=== PATIENT | male | born 1965 | race Two or more races ===

== ENCOUNTER 2024-05-17 12:46 | Emergency (ER) | payer MEDICAID ==
[~2024-05-17] VITALS: Ht 170.2 cm; Wt 83.9 kg
[2024-05-17 12:52] VITALS: BP 148/87; PULSE 96; RESP 16; TEMP 98.8; O2SAT 96
[2024-05-17] MEDS ORDERED: IBUP-2213 PO (15:38)
[2024-05-17] MEDS: IBUPROFEN 600 MG TAB PO ONE (15:55)
== END 2024-05-17 15:54 | disposition home or self-care (01) ==
LOC: MED 12:46
DX: S60.111A Contusion of right thumb with damage to nail, initial encounter (principal); R03.0 Elevated blood-pressure reading, without diagnosis of hypertension; W23.0XXA Caught, crushed, jammed, or pinched between moving objects, initial encounter; Y93.89 Activity, other specified; Y92.89 Other specified places as the place of occurrence of the external cause; Y99.8 Other external cause status
CPT/HCPCS: 11740; 73140; 99284